=== PATIENT | female | born 1960 | race Caucasian/White ===

== ENCOUNTER → 2018-12-12 15:43 | Emergency (ER) | payer BC, OTHER ==
[~2018-12-12 15:43] MED LIST: Acetaminophen TAB* 325 MG PO ONE; Benzonatate CAP* 100 MG PO ONE; Metoclopramide TAB* 10 MG PO ONE; diPHENhydraMINE PO* 25 MG PO ONE
[2018-12-12 19:24] LABS: Influenza A Molecular NEGATIVE (Negative); Influenza B Molecular NEGATIVE (Negative)
--- NOTE | 2018-12-12 19:32 | ED ---
Headache - HPI Summary HPI Summary: Patient complains of intermittent headache 1 month, persistent cough 1 month. Episodes of lightheadedness with position change, sore throat, bilateral ear pressure, sinus pressure. Also complains of fall 4 days ago with subsequent right hip pain which has since resolved. Denies head injury, LOC, vision change , N/V, fever, neck stiffness, CP, SOB, abdominal pain, change in urine, change in BM. Medical history is HTN, left bundle branch block, sleep apnea, HDL. - History Of Current Complaint Chief Complaint: EDHeadInjury Stated Complaint: GENERAL Time Seen by Provider: 12/12/18 18:04 Hx Obtained From: Patient Onset/Duration: Started weeks ago Initially Headache Was: Moderate Currently Pain Is: Moderate Timing: Intermittent, Lasting: Character: Throbbing, Pressure Location of Headache: Diffuse Aggravating Factor: Position Change Allevating Factors: Rest Associated Signs And Symptoms: Dizziness, Sinus Pressure - Allergies/Home Medications Allergies/Adverse Reactions: Allergies Allergy/AdvReac Type Severity Reaction Status Date / Time alprazolam [From Xanax] Allergy Unknown Verified 12/12/18 16:06 Reaction Details aspirin Allergy Stomach Verified 12/12/18 16:06 Cramps lactose Allergy Diarrhea Verified 12/12/18 16:06 latex Allergy Hives Verified 12/12/18 16:06 lisinopril Allergy Coughing Verified 12/12/18 16:06 metoprolol Allergy Palpitation Verified 12/12/18 16:06 s [id number] Reductase Allergy Shortness Verified 12/12/18 16:06 Inhibitor of Breath PMH/Surg Hx/FS Hx/Imm Hx Endocrine/Hematology History: Denies: Hx Diabetes Cardiovascular History: Reports: Hx Hypertension, Other Cardiovascular Problems/ Disorders - syncopal episodes of unknown etiology Denies: Hx Pacemaker/ICD Respiratory History: Reports: Hx Sleep Apnea - evaluation for 02/2014 Denies: Hx Asthma, Other Respiratory Problems/Disorders - DENIES History: Denies: Hx Dialysis, Hx Renal Disease Sensory History: Denies: Hx Hearing Aid Opthamlomology History: Denies: Hx Eye Prosthesis EENT History: Denies: Hx Deafness Neurological History: Reports: Other Neuro Impairments/Disorders - syncopal episodes of unknown etiology Psychiatric History: Denies: Hx Panic Disorder - Surgical History Surgery Procedure, Year, and Place: HEART MONITOR IMPLANTED AT [facility] – [place] - EVENT MONITOR [id number] REVEAL [employer] 09/16/12 9SET UP TO SEE DR MORALES'S OFFICE PRE & POST MRI TO GET INFO OFF MONITOR ) MRI SAFE FOR UP TO 3T BUT WILL DO AT HOSPITAL FOR THIS EXAM). APPENDIX AGE 14. TWISTED SMALL INTESTINES. C- SECTION. RT ANKLE SURGERY Infectious Disease History: Yes Infectious Disease History: Denies: Traveled Outside the [place] in Last 30 Days - Social History Alcohol Use: None Substance Use Type: Reports: None Smoking Status (MU): Never Smoked Tobacco Review of Systems Constitutional: Negative Eyes: Negative Positive: Sore Throat Cardiovascular: Negative Positive: Cough Gastrointestinal: Negative Genitourinary: Negative Musculoskeletal: Negative Skin: Negative Positive: Headache Psychological: Normal All Other Systems Reviewed And Are Negative: Yes Physical Exam - Summary Physical Exam Summary: Neuro exam normal. Neck supple. ENT exam unremarkable. Lung sounds clear to auscultation bilaterally. Regular rate and rhythm. Abdomen soft nontender. Mild facial pressure with palpation. Triage Information Reviewed: Yes Vital Signs On Initial Exam: Initial Vitals Temp Pulse Resp BP Pulse Ox 98.4 F 69 16 136/78 96 12/12/18 15:57 12/12/18 15:57 12/12/18 15:57 12/12/18 15:57 12/12/18 15:57 Vital Signs Reviewed: Yes Appearance: Positive: Well-Appearing Skin: Positive: Warm Head/Face: Positive: Normal Head/Face Inspection Eyes: Positive: Normal ENT: Positive: Normal ENT inspection Neck: Positive: Supple Respiratory/Lung Sounds: Positive: Clear to Auscultation Cardiovascular: Positive: Normal Abdomen Description: Positive: Nontender Musculoskeletal: Positive: Normal Neurological: Positive: Normal Psychiatric: Positive: Normal AVPU Assessment: Alert - [place] Coma Scale Best Eye Response: 4 - Spontaneous Best Motor Response: 6 - Obeys Commands Best Verbal Response: 5 - Oriented Coma Scale Total: 15 Diagnostics - Vital Signs Vital Signs Temp Pulse Resp BP Pulse Ox 12/12/18 15:57 98.4 F 69 16 136/78 96 - Laboratory Lab Results: Lab Results 12/12/18 12/12/18 Range/Units 19:08 19:12 Influenza A (Rapid) Negative (Negative) Influenza B (Rapid) Negative (Negative) Group A Strep Rapid Negative (Negative) Lab Statement: Any lab studies that have been ordered have been reviewed, and results considered in the medical decision making process. Headache Course/Dx - Course Course Of Treatment: Patient complains of intermittent headache 1 month, persistent cough 1 month. Episodes of lightheadedness with position change, sore throat, bilateral ear pressure, sinus pressure. Also complains of fall 4 days ago with subsequent right hip pain which has since resolved. Denies head injury, LOC, vision change, N/V, fever, neck stiffness, CP, SOB, abdominal pain , change in urine, change in BM. Medical history is HTN, left bundle branch block, sleep apnea, HDL. Physical exam:Neuro exam normal. Neck supple. ENT exam unremarkable. Lung sounds clear to auscultation bilaterally. Regular rate and rhythm. Abdomen soft nontender. Mild facial pressure with palpation. Vital signs within normal limits. CT brain negative. Chest x-ray negative for acute process. Flu negative. Strep negative. Patient refused migraine cocktail for headache. Patient accepted Rx for Tessalon. Diagnosis likely viral syndrome. - Diagnoses Provider Diagnoses: Headache, Viral syndrome Discharge - Sign-Out/Discharge Documenting (check all that apply): Patient Departure Patient Received Moderate/Deep Sedation with Procedure: No - Discharge Plan Condition: Stable Disposition: HOME Prescriptions: Benzonatate CAP* [Tessalon 100 MG CAP*] 200 mg PO TID 6 Days #40 cap Patient Education Materials: Acute Headache (ED), Viral Syndrome (ED) Referrals: Judit Epperson MD [Primary Care Provider] - Additional Instructions: Take Tylenol 650 mg with Benadryl 50 mg every 4 hours for headache. Drink plenty of fluids. Follow-up with primary care. Return to the ED for any new or worsening symptoms. - Billing Disposition and Condition Condition: STABLE Disposition: Home
[2018-12-12 19:58] VITALS: BP 165/89
== END | disposition home or self-care (01) ==
LOC: ED 15:43
DX: B34.9 Viral infection, unspecified (principal); R51 Headache; I44.7 Left bundle-branch block, unspecified; I10 Essential (primary) hypertension; G47.30 Sleep apnea, unspecified
CPT/HCPCS: 70450; 71046; 87651; 99283; A9270-GY